=== PATIENT | female | born 1980 | race African-American/Black ===

== ENCOUNTER → 2019-02-03 | Outpatient (CLI) | payer OTHER ==
[~2019-02-03] VITALS: Ht 170.2 cm; Wt 74.8 kg
[~2019-02-03] MED LIST: AMITRIPTYLINE H10 M3 PO; FLEXERIL PO; GRALISE600 MG PO; IBUPROFEN 800800 M1 PO; MOBIC15 MG PO; NORCO 5-325 TA1 EACH PO
--- NOTE | ~2019-02-03 | HPC ---
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 She is currently under Workmen's Compensation. She is no longer involved in any litigation. She has been off from work at various times. REVIEW OF SYSTEMS: Generally good health, decreased appetite, fatigue, weakness, headaches, wears glasses, asthma, lightheadedness. LABORATORY DATA: MRI of the cervical spine dated 12/31/2017 history, intense radiating neck pain for 60 days. FINDINGS: C2 through C3 and C5 through C6 levels revealed chronic disk desiccation. At C6-C7, a shallow mild broad protrusion of the disk mildly compresses the ventral thecal sac. 1. Chronic disk desiccation identified. 2. C7/T1 through T3/T4 revealed no disk herniation. Slight scoliosis identified accompanied by straightening of the cervical lordosis. No expansile cord mass. Cerebellar tonsils revealed normal position. No substantive foraminal stenosis. PAIN CLINIC ASSESSMENT AND PQRS: 1. History of osteoarthritis. The patient is not being treated for osteoarthritis or rheumatoid arthritis. 2. Height 5 feet 7 inches, weight 165 pounds, BMI is 25.8. 3. VITAL SIGNS: Blood pressure of 103/69, pulse 74, respiratory rate 14, room air saturation is 100%. 4. Pain intensity 03/24. 5. Fall risk. The patient has not fallen in the last 3 months. 6. Blood thinner. The patient is not on a blood thinning medication. 7. Hypertension. The patient is not being treated for hypertension. 8. Opioids greater than 6 weeks. The patient is not on an opioid regimen. 9. Risk assessment tool, low. 10. Functional assessment tool 60/70. 11. Recreational drug use. The patient denies use of recreational drugs. 12. Tobacco: The patient has never smoked. 13. Alcohol: The patient denies frequent use of alcoholic beverages. [facility] [address] [place] [address] PAIN MANAGEMENT CONSULTATION Name: JUDY MARCELINO Room #: REG KANA HarrisJeremyGerardoJeremy#: [id number] Admission: 02/03/19 ������������������ Attend Phys: Amarilys Oseguera MD Discharge: ������������������ Date of : 84 Report #: [id number] PHYSICAL EXAMINATION: GENERAL: The patient is a well-developed, well-nourished black female. Appears her stated age of 38 years. The patient is alert and oriented x 3. Affect is appropriate. Speech is fluent. HEENT: Normocephalic, atraumatic. Extraocular eye muscles intact. Sclerae nonicteric. Mucous membranes are moist. NECK: The patient complains of some pain and discomfort with muscle stiffness. Has pain in the midline portion of her neck. MUSCULOSKELETAL: Left and right lateral rotation, left and right lateral bending were cause some discomfort, which appears to be musculoskeletal without radiation down into her hands or fingers. Cervical compression caused the patient to give way complaining of pain and discomfort in the neck, midback and low back area. Spurling's maneuver is negative, left and right. Muscle strength is judged to be 5-/5 for the major muscle groups in the upper extremity. Deep tendon reflexes are +1 at the biceps bilaterally. The patient is able to lift her hands over her head. Lumbar evaluation, the patient was without significant scoliosis, kyphosis or lordosis. Left and right lateral bending causes the patient to complain of pain and discomfort in the midline area of her back, neck and low back area. Lumbar extension causes increased back pain and discomfort. Lower extremity muscle strength is judged to be 5-/5 for the major muscles of the lower extremity. Deep tendon reflexes are +1 at the knees bilaterally. The patient complains of some generalized pain to palpation globally in her back. Similar to what the patients with fibromyalgia complaining of. The patient has most of the pain in the midline area. No discrete trigger point can be found because of the global prevalence of pain, which she is experiencing in the upper extremity, mid back and lower back area. Anterior spring test, the patient complains of pain and discomfort in the area where we pressed to perform the procedure. The left and right lateral spring test, the patient complains of pain and discomfort with pressure on the lateral portion of her hips. The Amanuel's sign was negative. The patient does complain of pain and generalized increased back pain in the low back area with that maneuver. The patient notes increased back pain and leg pain with her legs hanging in a dependent position. No discrete dermatomal distribution of pain is noted. IMPRESSION: 1. Global myofascial pain. 2. Asthma. RECOMMENDATION: The patient states that she has been seen in the past by a number of professionals. States that she has tried muscle relaxants. Has tried chiropractic treatment. We would like to consider use of a TENS unit, but has not had one at this juncture. Has not undergone physical therapy. At this juncture, I think the appropriate treatment would be physical therapy. We explained to the patient that sometimes trigger points, which are global in [facility] [address] [place] [address] PAIN MANAGEMENT CONSULTATION Name: JUDY MARCELINO Room #: REG [facility] Luna.#: [id number] Admission: 02/03/19 ������������������ Attend Phys: Amarilys Oseguera MD Discharge: ������������������ Date of : 84 Report #: [id number] nature can become more focused with physical therapy. We would also have the patient try a TENS unit. She will follow up in the future as needed. We would like to thank you for letting us participate in her care. We hope she continues to improve. ��������������������������������������������� ���������������������������������������� By: ��������������������������������������������� [id number] Amarilys Oseguera MD /[place]
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
[2019-02-03 09:16] VITALS: BP 103/69
--- NOTE | 2019-02-03 09:29 | NUR ---
Pain Clinic Assessment: 1. History of Osteoarthritis: History of Rheumatoid Arthritis: 2. Height: 5 ft. 7 in. 170.2 cm. Weight: 165.0 lb. oz. 74.844 kg. Patient's BMI: 25.8 3. Vital Signs: BP: 103/69 Pulse: 74 Resp: 14 Temp: 02 Sat: 100 ECG Mon: 4. Pain Intensity: 7 5. Fall Risk: Dizziness: N Needs help standing or walking: N Fallen in the last 3 months: N Fall risk comments: 6. Patient on Blood Thinner: None 7. History of Hypertension: N 8. Opioid Therapy greater than 6 weeks: N Opiate Contract Signed: 9. Risk Assessment Tool Provided: LOW 10. Functional Assessment Tool: 60/70 11. Recreational Drug Use: Never Drug Type: Tobacco Use: Never Smoker Tobacco Type: Amount or Packs/day: How Many Years: Alcohol Use: No Frequency: Quant:
== END ==
LOC: PAIN 01-27 06:51
DX: M54.2 Cervicalgia (principal); M54.9 Dorsalgia, unspecified; M25.511 Pain in right shoulder; M25.512 Pain in left shoulder; J45.909 Unspecified asthma, uncomplicated